=== PATIENT | male | born 1955 | race Caucasian/White ===

== ENCOUNTER 2016-05-23 11:07 | Emergency (ER) | payer BC, OTHER ==
[2016-05-23 11:19] VITALS: TEMP 97.3; BMI 31.8
[2016-05-23 11:46] LABS: AUTOMATED BASOPHIL 0.7 % (0-2); AUTOMATED LYMPH 32.5 % (17-44); AUTOMATED MONOCYTE 8.9 % (3-10); AUTOMATED NEUTROPHIL 54.9 % (45-76); MPV 8.5 fL (7.4-10.4)
[2016-05-23 11:59] LABS: LEUKOCYTES/URINE NEG (NEGATIVE); NITRITE/URINE NEG (NEGATIVE); RBC/URINE 0-2 (0-2); URINE OCCULT BLOOD NEG (NEG/TRACE)
[2016-05-23 12:04] LABS: BLOOD UREA NITROGEN 14 MG/DL (9-20); CALCIUM 9.5 MG/DL (8.4-10.2); CALCULATED OSMOLALITY 272 MOs/Kg (270-290); CHLORIDE 102 mEq/L (98-107); GLUCOSE 141 MG/DL (70-99); SODIUM LEVEL 140 mEq/L (137-146); TOTAL PROTEIN 7.5 G/DL (6.3-8.2)
--- NOTE | 2016-05-23 12:16 | DIRPT ---
CLINICAL DATA: Chest pain for 3 weeks EXAM: CHEST 2 VIEW COMPARISON: November 02, 2010 FINDINGS: There is slight scarring in the left base. There is no edema or consolidation. The heart size and pulmonary vascularity are normal. No adenopathy. There is mild degenerative change in the thoracic spine. IMPRESSION: Slight scarring left base. No edema or consolidation. Electronically Signed By: Shmuel Walls III, M.D. On: 05/23/2016 12:13
[2016-05-23] MEDS ORDERED: NS 1,000 ML IV ONE (16:09)
[2016-05-23] MEDS ORDERED: MORPHINE 4 MG/ML INJECTION IV ONE (16:09)
[2016-05-23] MEDS ORDERED: ONDANSETRON HCL 4 MG/2 ML VIAL IV ONE (16:09)
--- NOTE | 2016-05-23 16:09 | EDPRACDOC ---
- General Information Chief Complaint: Abdominal Pain Stated Complaint: LOWER BACK/EPIGASTRIC PAIN Time Seen by Provider: 05/23/16 16:06 Information Source: Patient Mode Of Arrival: Car Home Medications: Home Medications Finasteride [Proscar] 5 mg PO DAILY 05/23/16 Fluticasone Propionate [Flonase] 2 spray SANDY DAILY 05/23/16 Hydrocodone Bit/Acetaminophen [Hydrocodon-Acetaminophen 5-325] 1 tab PO Q6 PRN # 15 tab 05/23/16 Levothyroxine [Synthroid, Levoxyl] 150 mcg PO DAILY 05/23/16 Metformin HCl 500 mg PO BID 05/23/16 Omeprazole 40 mg PO DAILY 05/23/16 Tamsulosin HCl [Flomax] 0.4 mg PO DAILY 05/23/16 Valacyclovir HCl [Valtrex] 1,000 mg PO TID 05/23/16 Allergies/Adverse Reactions: Allergies Allergy/AdvReac Type Severity Reaction Status Date / Time No Known Allergies Allergy Verified 05/23/16 11:14 - History of Present Illness Onset: last PM HPI: PT COMPLAINS OF SHARP, STABBING SEVERE PAIN IN MID BACK SINCE YESTERDAY, PT STATES HAS HAD SIMILAR PAIN OFF/ON FOR YEARS BUT NEVER THIS BAD, NO N/V/D, NO FEVER OR CHILLS, NO EXAC/AMEL FACTORS. PT STATES PAIN RADIATES AROUND HIS SIDES AND INTO EPIGASTRIC AREA, NO CP OR SOBR, PT HAS NOT TAKEN ANY MEDICATIONS FOR HIS SYMPTOMS. Pain Location: Reports: Epigastric Pain Context: Reports: Spontaneous Pain Severity: Severe Pain Quality: Reports: Sharp, Stabbing Pain Radiation: Reports: Back Modifying Factors: improves with: Nothing Associated Signs & Symptoms: Denies: Nausea, Frequency, Hematuria, Vomiting, Hematemesis, Anorexia, Diarrhea, Melena, Dysuria, Fever, Urgency, Chills Oral Intake: Normal Urinary Output: Normal ED Past Medical History - History Reviewed Yes Nurses notes reviewed and agree except as marked - Patient Medical History Systemic History: Reports: Diabetes - Social Medical History Smoking Status: Never smoker ETOH: Social Substance Abuse: None EDM Review of Systems - Review of Systems Constitutional: negative: Chills, Fever Eyes: negative: Blurred Vision, Double Vision Ears: negative: Drainage Throat: negative: Pain Nose: negative: Congestion, Discharge Respiratory: negative: Cough, Shortness of Breath, Wheezing Cardiovascular: negative: Chest Pain, Palpitations Gastrointestinal: Pain. negative: Diarrhea, Nausea, Vomiting Genitourinary: negative: Dysuria, Frequency Neurological: negative: Dizziness, Headache, Numbness, Weakness Musculoskeletal: Back Integumentary: No Symptoms Reported - Physical Exam Constitutional: Alert (Awake), No apparent distress Oriented to: Time, Person, Place Last recorded Vital Signs: Last Vital Signs Temp 97.3 F L 05/23/16 11:14 Pulse 69 05/23/16 17:05 Resp 18 05/23/16 17:05 BP 140/79 05/23/16 17:05 Pulse Ox 95 05/23/16 17:05 Oxygen Pulse Oxygen Saturation 95 O2 Device Room Air Oxygen Flow Rate Fraction of Inspired Oxygen ( FIO2) - HEENT Head: Normal ( normocephalic) Eye Exam: Normal (PERRL, EOMI, Sclera white) Oropharynx: Normal (Pharynx:Moist without exudate,Gums-no swelling) Tympanic Membrane: Normal ENT EAC: Normal TMJ: Normal Nose: No Symptoms Reported (septum midline) Neck: Normal (FROM, trachea at midline) - Respiratory/Cardiovascular Respiratory: Normal - CTA (BBS clear to auscultation without adventitious sounds ) Cardiovascular: Normal (RRR without murmur, gallop or rub) - GI Auscultation: Normal (NABS) Palpation: Normal (Soft,No rebound or guarding, non distended) Tenderness: Non tender Gamez's Sign: Negative - Musculoskeletal Back: Normal (Non-Tender). negative: CVA Tenderness, Lumbar TTP Extremities: Normal (Normal tone, Pulses 2+ No cyanosis or edema, FROM) - Integumentary Skin: Normal, Warm, Dry Lymphatics: Normal (no adenopathy) - Neurologic Memory Impaired: Normal Motor Function: Normal (Normal tone, Pulses 2+ No cyanosis or edema, FROM) Cranial Nerve: Normal (CN II-X11 intact sensation, strength 5/5) Cerebellar: Normal Mood Description: Normal Perception: Normal - Differential Diagnosis Bowel Obstruction, Diverticulitis, IBS, Hepatitis, Pancreatitis, UTI - Re-evaluation Re-evaluation 1 Re-evaluation Time: 17:39 (STABLE) - Results 05/23/16 11:24 05/23/16 11:24 WBC 8.4 xk/uL (3.8-10.8) 05/23/16 11:24 RBC 5.34 xM/uL (4.70-6.10) 05/23/16 11:24 Hgb 15.8 g/dL (14.0-18.0) 05/23/16 11:24 Hct 46.6 % (42-52) 05/23/16 11:24 MCV 87 fL (80-94) 05/23/16 11:24 MCH 29.5 pg (27-32) 05/23/16 11:24 MCHC 33.8 g/dl (33-36) 05/23/16 11:24 RDW 13.3 % (11.5-14.5) 05/23/16 11:24 Plt Count 255 xk/uL (130-400) 05/23/16 11:24 MPV 8.5 fL (7.4-10.4) 05/23/16 11:24 Neut % (Auto) 54.9 % (45-76) 05/23/16 11:24 Lymph % (Auto) 32.5 % (17-44) 05/23/16 11:24 Wallace % (Auto) 8.9 % (3-10) 05/23/16 11:24 Eos % (Auto) 3.0 % (0-5) 05/23/16 11:24 Baso % (Auto) 0.7 % (0-2) 05/23/16 11:24 Absolute Neuts (auto) 4.54 xk/uL (1.7-8.2) 05/23/16 11:24 Absolute Lymphs (auto) 2.69 xk/uL (0.65-4.75) 05/23/16 11:24 Sodium 140 mEq/L (137-146) 05/23/16 11:24 Potassium 4.0 mEq/L (3.5-5.1) 05/23/16 11:24 Chloride 102 mEq/L (98-107) 05/23/16 11:24 Carbon Dioxide 27 mMOL/L (22-33) 05/23/16 11:24 Anion Gap 15 mEq/L (8-16) 05/23/16 11:24 BUN 14 MG/DL (9-20) 05/23/16 11:24 Creatinine 0.80 MG/DL (0.66-1.25) 05/23/16 11:24 Estimated GFR (MDRD) > 60 mL/min (>=60) 05/23/16 11:24 Glucose 141 MG/DL (70-99) H 05/23/16 11:24 Calculated Osmolality 272 MOs/Kg (270-290) 05/23/16 11:24 Calcium 9.5 MG/DL (8.4-10.2) 05/23/16 11:24 Total Bilirubin 1.5 MG/DL (0.2-1.3) H 05/23/16 11:24 AST 36 IU/L (17-59) 05/23/16 11:24 ALT 54 IU/L (21-72) 05/23/16 11:24 Alkaline Phosphatase 76 IU/L (38-126) 05/23/16 11:24 Total Protein 7.5 G/DL (6.3-8.2) 05/23/16 11:24 Albumin 4.4 G/DL (3.5-5.0) 05/23/16 11:24 Lipase 51 U/L (23-300) 05/23/16 11:24 Urine Color Yellow 05/23/16 11:24 Urine Clarity Clear 05/23/16 11:24 Urine pH 9.0 (5.0-8.0) H 05/23/16 11:24 Ur Specific [place] 1.005 (1.003-1.035) 05/23/16 11:24 Urine Protein Neg (NEG/TRACE) 05/23/16 11:24 Urine Glucose (UA) Trace (NEGATIVE) 05/23/16 11:24 Urine Ketones Neg (NEGATIVE) 05/23/16 11:24 Urine Occult Blood Neg (NEG/TRACE) 05/23/16 11:24 Urine Nitrite Neg (NEGATIVE) 05/23/16 11:24 Urine Bilirubin Neg (NEGATIVE) 05/23/16 11:24 Urine Urobilinogen <2.0 MG/DL (0-1) 05/23/16 11:24 Ur Leukocyte Esterase Neg (NEGATIVE) 05/23/16 11:24 Urine RBC 0-2 (0-2) 05/23/16 11:24 Urine Mucus Occ (NEG/OCC) 05/23/16 11:24 Lab Results 05/23/16 05/23/16 05/23/16 11:24 11:24 11:24 WBC 8.4 RBC 5.34 Hgb 15.8 Hct 46.6 MCV 87 MCH 29.5 MCHC 33.8 RDW 13.3 Plt Count 255 MPV 8.5 Neut % (Auto) 54.9 Lymph % (Auto) 32.5 Wallace % (Auto) 8.9 Eos % (Auto) 3.0 Baso % (Auto) 0.7 Absolute Neuts (auto) 4.54 Absolute Lymphs (auto) 2.69 Sodium 140 Potassium 4.0 Chloride 102 Carbon Dioxide 27 Anion Gap 15 BUN 14 Creatinine 0.80 Estimated GFR (MDRD) > 60 Glucose 141 H Calculated Osmolality 272 Calcium 9.5 Total Bilirubin 1.5 H AST 36 ALT 54 Alkaline Phosphatase 76 Total Protein 7.5 Albumin 4.4 Lipase 51 Urine Color Yellow Urine Clarity Clear Urine pH 9.0 H Ur Specific [place] 1.005 Urine Protein Neg Urine Glucose (UA) Trace Urine Ketones Neg Urine Occult Blood Neg Urine Nitrite Neg Urine Bilirubin Neg Urine Urobilinogen <2.0 Ur Leukocyte Esterase Neg Urine RBC 0-2 Urine Mucus Occ - Diagnostic Imaging CT UROGRAM Image interpreted by: Radiologist 05/23/16 17:32 CT ABDOMEN AND PELVIS WITHOUT CONTRAST TECHNIQUE: Multidetector CT imaging of the abdomen and pelvis was performed following the standard protocol without IV contrast. 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 Lung bases are otherwise normal. No free air or free fluid. No renal stones, masses, hydronephrosis, or perinephric stranding. The ureters are normal in caliber with no ureterectasis or ureteral stones are The patient is status post cholecystectomy. A low-attenuation lesion in the liver is larger since 2010 with an attenuation of less than 10 Hounsfield units, consistent with a cyst. No other liver lesions identified. The spleen is normal in size. The adrenal glands and pancreas are within normal limits. There is no peripancreatic stranding to suggest pancreatitis or explain the patient's pain. The abdominal aorta is normal in caliber. There are mild atherosclerotic changes. No adenopathy. The stomach and small bowel are within normal limits. The colon demonstrates scattered diverticulosis without diverticulitis. The appendix is well seen with no appendicitis. The pelvis demonstrates multiple phleboliths. No adenopathy or mass. The bladder is normal. The prostate and seminal vesicles are unremarkable. Visualized bones demonstrate degenerative changes in the SI joints and lumbar spine. No suspicious bony lesions. Conclusion: 1. No cause for acute abdominal pain is identified. Decision Time to Discharge: 17:39 - Departure Disposition: Home Condition: Stable Final Diagnosis: Abdominal pain Back pain Qualifiers: Back pain location: thoracic back pain Chronicity: acute Back pain laterality: bilateral Qualified Code(s): M54.6 - Pain in thoracic spine Compression fracture of L1 lumbar vertebra Qualifiers: Encounter type: initial encounter Fracture type: closed Qualified Code(s): S32.010A - Wedge compression fracture of first lumbar vertebra, initial encounter for closed fracture Instructions: Acute Abdominal Pain (ED) Education/Counseling Given To: Patient Education/Counseling Given Regarding: Diagnosis, Treatment, Prognosis, Follow Up Referrals: Malik Thomas MD [Primary Care Provider] - One Week Prescriptions: Hydrocodone Bit/Acetaminophen [Hydrocodon-Acetaminophen 5-325] 1 tab PO Q6 PRN # 15 tab PRN Reason: Pain Additional Instructions: RETURN TO THE ED FOR ANY WORSENING SYMPTOMS OR CONCERNS.
--- NOTE | 2016-05-23 17:31 | DIRPT ---
CLINICAL DATA: Stabbing pain in the mid back radiating to the epigastric region for 4 days. No history of renal stones. EXAM: CT ABDOMEN AND PELVIS WITHOUT CONTRAST TECHNIQUE: Multidetector CT imaging of the abdomen and pelvis was performed following the standard protocol without IV contrast. 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 Lung bases are otherwise normal. No free air or free fluid. No renal stones, masses, hydronephrosis, or perinephric stranding. The ureters are normal in caliber with no ureterectasis or ureteral stones are The patient is status post cholecystectomy. A low-attenuation lesion in the liver is larger since 2010 with an attenuation of less than 10 Hounsfield units, consistent with a cyst. No other liver lesions identified. The spleen is normal in size. The adrenal glands and pancreas are within normal limits. There is no peripancreatic stranding to suggest pancreatitis or explain the patient's pain. The abdominal aorta is normal in caliber. There are mild atherosclerotic changes. No adenopathy. The stomach and small bowel are within normal limits. The colon demonstrates scattered diverticulosis without diverticulitis. The appendix is well seen with no appendicitis. The pelvis demonstrates multiple phleboliths. No adenopathy or mass. The bladder is normal. The prostate and seminal vesicles are unremarkable. Visualized bones demonstrate degenerative changes in the SI joints and lumbar spine. No suspicious bony lesions. Conclusion: 1. No cause for acute abdominal pain is identified. Electronically Signed By: Edenilson Shine III, M.D On: 05/23/2016 17:28
[2016-05-23 18:19] VITALS: BP 126/74; PULSE 18
[2016-05-25 06:23] LABS: H. PYLORI IgA <9.0 units (0.0-8.9); H. PYLORI IgG <0.9 U/mL (0.0-0.8); H. PYLORI IgM <9.0 units (0.0-8.9)
== END 2016-05-23 17:52 | disposition home or self-care (01) ==
LOC: ED 11:07
DX: R10.9 Unspecified abdominal pain (principal); M54.6 Pain in thoracic spine; S32.010A Wedge compression fracture of first lumbar vertebra, initial encounter for closed fracture; X58.XXXA Exposure to other specified factors, initial encounter; Y93.9 Activity, unspecified
CPT/HCPCS: 36415; 71020; 74176; 80053; 81001; 83690; 85025; 86677; 93005; 96361; 96374; 96375; 99284; J2270; J2405